=== PATIENT | female | born 1955 | race Caucasian/White ===

== ENCOUNTER 2022-12-21 15:55 | Outpatient (CLI) | payer MEDICARE, MEDICAID | END 2022-12-22 06:20 | disposition home or self-care (01) | LOC: SLEEP 15:55 | PROVIDERS: ATTEND Internal Medicine Critical Care Medicine | DX: G47.33 Obstructive sleep apnea (adult) (pediatric) (principal) | CPT/HCPCS: 95810 ==

== ENCOUNTER → 2022-12-21 | Outpatient (CLI) | payer MEDICARE, MEDICAID ==
[~2022-12-21] MED LIST: CATHETER FLUSH 10 ML SYR IV PRN; HOLD METFORMIN - RECEIVED CONTRAST 20 ML VIAL IV SCH; IOHEXOL 350 MG/ML 100 ML (OMNIPAQUE 350) VIAL IV ONE; NS 100 ML (IVPB) BAG IV ONE
[2022-12-21 15:57] LABS: MAGNESIUM 1.7 MG/DL (1.6-2.4)
--- NOTE | 2022-12-21 17:49 | Diagnostic Imaging Report ---
PROCEDURE: CT angiography of the chest with contrast. TECHNIQUE: Multiple contiguous axial images were obtained through the chest after uneventful bolus administration of intravenous contrast. 3D reconstructed CTA MIP acquisitions were also performed. Auto Exposure Controls were utilized during the CT exam to meet ALARA standards for radiation dose reduction. INDICATION: Dyspnea There is good opacification of the pulmonary arteries without intraluminal filling defect. Thoracic aorta is of normal caliber with mild/moderate atherosclerotic calcification. There is no evidence of consolidation. Focal parenchymal density along the left heart border may represent areas of atelectasis or scarring. There is no significant pleural or pericardial fluid. No pathologically enlarged adenopathy is seen. There is calcified granuloma in the right lower lobe. Upper abdominal sections reveal cholelithiasis. IMPRESSION: No CTA evidence of pulmonary embolism. There is moderate aortic atherosclerosis with probable atelectasis and/or scarring in the left lung. Otherwise, no acute abnormality is detected. Dictated by: Dictated on workstation # [id number]
[2022-12-22 06:11] LABS: ALTERNARIA MOLD RAST <0.10 kU/L (0.00-0.09); RAGWEED RAST 0.89 kU/L (0.00-0.09)
== END ==
LOC: CARD 13:43
PROVIDERS: ATTEND Physician Assistant
DX: I51.7 Cardiomegaly (principal); J96.11 Chronic respiratory failure with hypoxia; G47.33 Obstructive sleep apnea (adult) (pediatric)
CPT/HCPCS: 36415; 71275; 83735; 83880; 85379; 85652; 86003; 86021; 86141; 93306

== ENCOUNTER → 2022-12-21 | Outpatient (CLI) | payer MEDICARE, MEDICAID ==
[2022-12-21 15:29] LABS: HEMATOCRIT 43 % (35-52); HEMOGLOBIN 14.6 g/dL (11.5-16.0); MEAN CORPUSCULAR HEMOGLOBIN 33 pg (25-34); MEAN CORPUSCULAR HGB CONC 34 g/dL (32-36); MEAN CORPUSCULAR VOLUME 96 fL (80-99); MEAN PLATELET VOLUME 11.1 fL (9.0-12.2); PLATELET COUNT 252 10^3/uL (130-400); WHITE BLOOD COUNT 9.3 10^3/uL (4.3-11.0)
[2022-12-21 15:42] LABS: ABG BASE EXCESS 1.6 MMOL/L (-2.5-2.5); ABG OXYGEN SATURATION 95 % (94-100); ABG PCO2 44 MMHG (35-45); ABG PH 7.39 (7.37-7.43); ABG PO2 65 MMHG (79-93); ABG TCO2 27.4 MMOL/L (21.0-31.0); ALLENS TEST YES-POS; INSPIRED O2 2L; PATIENT TEMP 37; VENTILATOR NO
[2022-12-21 16:00] LABS: ALBUMIN 4.4 GM/DL (3.2-4.5); BILIRUBIN,TOTAL 0.6 MG/DL (0.1-1.0); CALCIUM 10.2 MG/DL (8.5-10.1); CREATININE SERUM 0.69 MG/DL (0.60-1.30); POTASSIUM 3.5 MMOL/L (3.6-5.0); TOTAL PROTEIN 8.2 GM/DL (6.4-8.2)
== END ==
LOC: LAB 14:59
PROVIDERS: ATTEND Internal Medicine Cardiovascular Disease
DX: I10 Essential (primary) hypertension (principal); I25.10 Atherosclerotic heart disease of native coronary artery without angina pectoris; I48.0 Paroxysmal atrial fibrillation; E78.2 Mixed hyperlipidemia
CPT/HCPCS: 36415; 36600; 80053; 80061; 82805; 83036; 84443; 85027

== ENCOUNTER → 2023-01-11 | Outpatient (CLI) | payer MEDICARE, MEDICAID ==
[~2023-01-11] MED LIST changes: -CATHETER FLUSH 10 ML SYR IV PRN; +CATHETER FLUSH 10 ML SYR IVP PRN; -HOLD METFORMIN - RECEIVED CONTRAST 20 ML VIAL IV SCH; -IOHEXOL 350 MG/ML 100 ML (OMNIPAQUE 350) VIAL IV ONE; -NS 100 ML (IVPB) BAG IV ONE; +REGADENOSON 0.4 MG/5 ML SYR (LEXISCAN) IV ONE; +meTOprolol INJECTION 5 MG/5 ML VIAL IV ONE; +meTOprolol INJECTION 5 MG/5 ML VIAL ONE
[2023-01-11 13:26] VITALS: BP 131/80
--- NOTE | 2023-01-11 16:01 | Cardiology Stress Test Report ---
Stress Test Report Date of Procedure/Referring: Date of Procedure: Jan 11, 2023 PCP Kalpana Harris Aprn Admitting Physician Admitting Physician: Attending Physician: Mya Baker Indications: atrial fib Baseline Heart Rate: 133 Baseline Blood Pressure: Blood Pressure Systolic: 131 Blood Pressure Diastolic: 80 Baseline Vitals Vital Signs Date Time Temp Pulse Resp B/P (MAP) Pulse Ox O2 Delivery O2 Flow Rate FiO2 01/11/23 13:26 129 131/80 (97) Baseline EKG: Baseline EKG: A Fib Summary After explaining the procedure to the patient, she signed a consent and then brought to the stress nuclear laboratory. Patient received 0.4 mg Lexiscan for stress test, ECG, heart rate and blood pressure were monitored continuously. Resting and stress dose of radio tracer were injected, imaging was acquired and reviewed in short axis, horizontal long axis and vertical long axis views. TID: 1.15 SSS: 10 SDS: 7 EF: 82 Patient tolerated Lexiscan well Baseline atrial fibrillation with rapid ventricular response persisted during test Reversible ischemia involving the anterior wall and anterior lateral wall Small left ventricular size with ejection fraction 82% Copy Copies To 1: [facility]/CHARU OTTO MD Jan 11, 2023 16:01
== END ==
LOC: CARD 12:07
PROVIDERS: ATTEND Physician Assistant
DX: I48.91 Unspecified atrial fibrillation (principal); R06.00 Dyspnea, unspecified
CPT/HCPCS: 78452; 93017

== ENCOUNTER 2023-01-16 07:53 | Day surgery (SDC) | payer MEDICARE, MEDICAID ==
[2023-01-16] VITALS (8 sets, daily range): BP systolic 89–134; BP diastolic 51–85
[~2023-01-16] VITALS: Ht 149.9 cm; Wt 69.3 kg
[2023-01-16] MEDS ORDERED: LIDOCAINE 1% INJ 20 ML VIAL ONE (07:58)
[2023-01-16] MEDS ORDERED: NS IV 1000 ML 1,000 ML ONE (07:58)
[2023-01-16] MEDS ORDERED: HEParin (CATH LAB) 2,000 ML IV ONE (07:58)
[2023-01-16] MEDS ORDERED: NS IV 1000 ML 1,000 ML IV SCH ×2 (08:00→11:15)
[2023-01-16 08:33] LABS: HEMATOCRIT 46 % (35-52); HEMOGLOBIN 15.2 g/dL (11.5-16.0); MEAN CORPUSCULAR HEMOGLOBIN 32 pg (25-34); MEAN CORPUSCULAR HGB CONC 33 g/dL (32-36); MEAN CORPUSCULAR VOLUME 96 fL (80-99); MEAN PLATELET VOLUME 11.1 fL (9.0-12.2); PLATELET COUNT 277 10^3/uL (130-400); WHITE BLOOD COUNT 11.4 10^3/uL (4.3-11.0)
[2023-01-16] MEDS ORDERED: ATOR20TA66 PO (08:33)
[2023-01-16] MEDS ORDERED: LISI1TAB46 PO (08:33)
[2023-01-16] MEDS ORDERED: DIAZ5TAB49 PO (08:33)
[2023-01-16] MEDS ORDERED: METO50TA15 PO (08:33)
[2023-01-16] MEDS ORDERED: RIVA20TA PO (08:33)
[2023-01-16] MEDS ORDERED: LEVO50TA6 PO (08:33)
[2023-01-16] MEDS ORDERED: AMLO10TA4 PO (08:33)
[2023-01-16] MEDS ORDERED: METF-397 PO ×2 (08:33→11:06)
[2023-01-16] MEDS ORDERED: TIOT4MIS3 IH (08:33)
[2023-01-16] MEDS ORDERED: ALBU6.7H13 INH (08:33)
[2023-01-16] MEDS ORDERED: proPOfol INJECTION 200 MG/20 ML VIAL IV ONE ×2 (08:39→09:10)
[2023-01-16] MEDS ORDERED: MIDAZOLAM INJ 2 MG/2 ML VIAL ONE (08:39)
[2023-01-16 08:45] LABS: INR 2.5 (0.8-1.4); PROTHROMBIN TIME PATIENT 26.8 SEC (12.2-14.7)
--- NOTE | 2023-01-16 08:53 | Diagnostic Imaging Report ---
Indication: Coronary artery disease and an abnormal stress study Findings: Heart size is within normal limits. No focal consolidation, failure pattern, effusion or pneumothorax. Benign prominence of mediastinal and pericardial fat. Stable when correlated with a chest CT of one month earlier. Impression: Stable chest. No acute appearing abnormality. Dictated by: Dictated on workstation # [id number]
[2023-01-16 08:56] LABS: ALBUMIN 4.5 GM/DL (3.2-4.5); BILIRUBIN,TOTAL 0.7 MG/DL (0.1-1.0); CALCIUM 10.2 MG/DL (8.5-10.1); CREATININE SERUM 0.8 MG/DL (0.60-1.30); POTASSIUM 3.8 MMOL/L (3.6-5.0); TOTAL PROTEIN 8.3 GM/DL (6.4-8.2)
[2023-01-16] MEDS ORDERED: VERAPAMIL 5 MG/2 ML (CALAN) VIAL IV ONE (09:09)
[2023-01-16] MEDS ORDERED: fentaNYL INJECTION 100 MCG/2 ML VIAL ONE (09:09)
[2023-01-16] MEDS ORDERED: MIDAZOLAM INJ 5 MG/5 ML VIAL ONE (09:09)
[2023-01-16] MEDS ORDERED: HEParin 1000 UNIT/ML (10ML VIAL) FOR BOLUS ONE (09:10)
[2023-01-16] MEDS ORDERED: NITRO DRIP 25000 MCG/D5W 250 ML IV ONE (09:10)
--- NOTE | 2023-01-16 09:39 | Cardiac Procedure Note-CS/ASA ---
Pre-Procedure Note Pre-Op Procedure Note Date of Available H&P: Jan 12, 2023 Date H&P Reviewed: Jan 16, 2023 Time H&P Reviewed: 09:39 History & Physical: H&P Reviewed, Patient Examed, No changes noted Pre-Operative Diagnosis: CAD. A fib Moderate Sedation PreProcedure Time 09:39 ASA Score 3 Airway Lungs Heart ASA score ASA 1: a normal healthy patient ASA 2: a patient with a mild systemic disease (mid diabetes, controlled hypertension, obesity ASA 3: a patient with a severe systemic disease that limits activity (angina, COPD, prior Myocardial infarction) ASA 4: a patient with an incapacitating disease that is a constant threat to life (CHF, renal failure) ASA 5: a moribund patient not expected to survive 24 hrs. (ruptured aneurysm) ASA 6: a declared brain- patient whose organs are being harvested. For emergent operations, add the letter E after the classification Mallampati Classification Grade 3 Sedation Plan Analgesia, Amnesia, Plan communicated to team members, Discussed options with patient/fam, Discussed risks with patient/fam The patient is an appropriate candidate to undergo the planned procedure, sedation, and anesthesia. The patient immediately re-assessed prior to indication. CHARU CROW MD Jan 16, 2023 09:39
--- NOTE | 2023-01-16 10:53 | Cardioversion ---
Cardioversion PROCEDURE PHYSICIAN: Charu Mir DATE OF PROCEDURE: 01/16/23 DIRECT EXTERNAL ELECTRICAL CARDIOVERSION: Indications: Atrial Fibrillation with rapid ventricular rate Preoperative diagnoses: Atrial Fibrillation with rapid ventricular rate Postoperative diagnosis: Sinus rhythm, Successful Electrical Cardioversion Anesthesia: By Anesthesia services Complications: None Specimen: None Contrast: 0 Flouroscopy: none Procedure Details: 67-year-old lady with atrial fibrillation, chronic, scheduled for DORETHA and electrical cardioversion had an abnormal stress test scheduled for cardiac catheterization after the cardioversion. 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 Electrical cardioversion was carried out with anesthesia support with propofol. 200 joules of synchronized shock was delivered through external patches which promptly restored sinus rhythm. The patient tolerated the procedure well. Conclusions: Successful electrical cardioversion, patient has a long pause then she establish sinus rhythm Final Diagnosis: Paroxysmal atrial fibrillation Palpitation Coronary artery disease Hypertension CHARU MIR MD Jan 16, 2023 10:53
[2023-01-16] MEDS ORDERED: FLEC100T PO (11:06)
--- NOTE | 2023-01-16 11:07 | Discharge Inst-Post CATH ---
Discharge Inst-CATH/EP Problems Reviewed?: Yes Post Cardiac Cath/EP D/C Inst Follow Up/Plan Hold metformin for [address] Mir in 1 to 2 weeks <b>CARDIAC CATH/EP PROCEDURE DISCHARGE INSTRUCTIONS</b> ACTIVITY * Go Home directly and rest. * Limit activity of the leg (or wrist if it was used) for 7 days including aerobics, swimming, jogging, bicycling, etc. * Restrict stair-climbing for 7 days if possible, if not, climb up with your non-cath leg, then bring together on the same step. * Avoid lifting, pushing, pulling or excessive movement of the affected extremity for 7 days. * Customary sexual activity may be resumed after 2 days-use caution not to use a position that strains or causes pain to the affected extremity. * No driving for 24 hours. * NO SMOKING. * Avoid straining for bowel movements for 7 days. * Gentle walking on level ground is allowed. * Returning to work will depend on the type of procedure and the results. Your doctor will discuss this with you. CALL YOUR DOCTOR FOR ANY OF THE FOLLOWING: *If bleeding from the puncture site occurs- Apply gentle pressure to site with clean cloth and call your doctor or EMS. * If a knot or lump forms under the skin, increases in size, or causes pain. * If bruising appears to be worsening or moving further down your leg instead of disappearing. * Temperature above 101 F. CARE OF YOUR GROIN INCISION; * Bruising or purple discoloration of the skin near the puncture site is common. * You may shower only, no bathtub bathing for 5 days. Be careful to avoid slipping as your leg may feel stiff. * If a closure device was used on your femoral artery, please see the attached guide regarding care of the device and your leg. * Leave dressing on FOR 24 hours. CARE OF YOUR WRIST INCISION; * Bruising or purple discoloration of the skin near the puncture site is common. * You may shower. * DO NOT submerge wrist. * Leave dressing on FOR 24 hours. CHARU MIR MD Jan 16, 2023 11:07
--- NOTE | 2023-01-16 11:09 | Cardiac Cath Report ---
Cardiac Cath Report Physician (s)/Theatrical Agent (s) Physician CHARU CROW MD Pre-Procedure Diagnosis Pre-Procedure Diagnosis: CAD. A fib Post-Procedure Note Procedure Start Date: Jan 16, 2023 Name of Procedure: Left heart catheterization Findings/Procedure Note PROCEDURE NOTE: 67-year-old lady with atrial fibrillation, abnormal stress test, scheduled for DORETHA and cardioversion and cardiac catheterization. DORETHA and cardioversion were done then we decided to proceed with a cardiac catheterization. After explaining the procedure to the patient, all pros and cons were explained, all questions were answered. The patient signed the consent and then she was placed in the cardiac catheterization laboratory. Groin was prepped in SL fashion local anesthesia was used. Sheath placed in the right radial artery, [place] catheter was advanced and prolapsed to the left ventricular cavity, pressure was measured, pullback LV to aorta was done, engage the right and left coronary system, angiogram was done. At the end of the procedure the sheath was removed. Vascular band was used FINDINGS: Hemodynamics LV 94/10, end-diastolic pressure of 10 Aorta 85/53 mean of 66 ANATOMY: Left Main is free of obstructive disease Left Anterior Descending has slow flow probably due to small vessel disease nonobstructive disease Left Circumflex has slow flow with small vessel disease nonobstructive disease Right Coronary Artery is a small artery, dominant artery with 40% stenosis in the midportion nonobstructive disease LV Gram was not done, pressure was measured CONCLUSION: Slow flow in the left coronary system due to small vessel disease, 40% mid right coronary artery stenosis nonobstructive disease Normal left ventricular end-diastolic pressure DISCUSSION AND RECOMMENDATION: Patient has nonobstructive disease in the coronary system, we will continue maximizing medical therapy in addition after the cardioversion patient will be started on flecainide 100 mg twice daily Anesthesia Type: Conscious Sedation Estimated blood loss (mL): 10 ml Contrast Amount: 27 ml Total Radiation Dose: 258 mGy Post-Procedure Diagnosis Post-operative diagnosis: Coronary artery disease Atrial fibrillation Hypertension Hyperlipidemia CHARU CROW MD Jan 16, 2023 11:09
--- NOTE | 2023-01-16 13:05 | Anesthesia-General Post-Op ---
MAC Patient Condition Mental Status/LOC: Same as Preop Cardiovascular: Satisfactory Nausea/Vomiting: Absent Respiratory: Satisfactory Pain: Controlled Complications: Absent Post Op Complications Complications None Follow Up Care/Instructions Patient Instructions None needed. Anesthesiology Discharge Order Discharge Order Patient was doing well this morning after the DORETHA/cardioversion before the cardiac cath started with no complaints, stable vital signs, no apparent adverse anesthesia problems. No complications reported per nursing. ELISE OLIVARES DO Jan 16, 2023 13:05
== END 2023-01-16 14:00 | disposition home or self-care (01) ==
LOC: CATH 07:53 → SDC 11:19 → CATH 14:00
PROVIDERS: ATTEND Internal Medicine Cardiovascular Disease
DX: I25.10 Atherosclerotic heart disease of native coronary artery without angina pectoris (principal); I48.0 Paroxysmal atrial fibrillation; I10 Essential (primary) hypertension; R94.39 Abnormal result of other cardiovascular function study; J44.9 Chronic obstructive pulmonary disease, unspecified; E03.9 Hypothyroidism, unspecified; E11.9 Type 2 diabetes mellitus without complications; E78.2 Mixed hyperlipidemia; Z99.81 Dependence on supplemental oxygen; Z87.891 Personal history of nicotine dependence; Z79.899 Other long term (current) drug therapy; Z79.01 Long term (current) use of anticoagulants; Z79.890 Hormone replacement therapy; Z79.84 Long term (current) use of oral hypoglycemic drugs
CPT/HCPCS: 36415; 36430; 71045; 80053; 85027; 85610; 85730; 87081; 92960; 93005; 93312; 93458

== ENCOUNTER 2023-01-18 03:04 | Inpatient (IN) | payer MEDICARE, MEDICAID ==
[~2023-01-18] VITALS: Ht 149.9 cm; Wt 71.3 kg
[~2023-01-18 03:04] MED LIST changes: +ALBU6.7H13 INH; +AMLO10TA4 PO; +ATOR20TA66 PO; -CATHETER FLUSH 10 ML SYR IVP PRN; +DIAZ5TAB49 PO; +FLEC100T PO; +LEVO50TA6 PO; +LISI1TAB46 PO; +METF-397 PO; +METO50TA15 PO; -REGADENOSON 0.4 MG/5 ML SYR (LEXISCAN) IV ONE; +RIVA20TA PO; +TIOT4MIS3 IH; -meTOprolol INJECTION 5 MG/5 ML VIAL IV ONE; -meTOprolol INJECTION 5 MG/5 ML VIAL ONE
[2023-01-18] MEDS ORDERED: RT-ALBUTEROL SULF 2.5 MG/3 ML PRE-MIX VIAL INH ONE (03:30)
--- NOTE | 2023-01-18 03:34 | ED Respiratory ---
General Chief Complaint: Respiratory Problems Stated Complaint: SOA Nursing Triage Note: PATIENT ARRIVED VIA EMS FROM [facility] WITH COMPLAINTS OF INCREASED SOB, PATIENT DENIES BREATHING TX AT HOME. PATIENT LABORED BREATHING, SOB INCREASED WITH VERBAL COMMUNICATION, ON OXYGEN 4L, DUE TO ABN ABG DR SOTO REQUESTED PATIENT TO BE ELVALUATED IN ED. IV LEFT AC. BREATHING TX ADMINISTERED BY EMS CONTENT ENGINEER. HEART CATH YESTERDAY Source: patient, other (transferring ED) Exam Limitations: no limitations History of Present Illness Date Seen by Provider: Jan 18, 2023 Time Seen by Provider: 03:12 Initial Comments Patient is a 67-year-old female who presents to the emergency room with a chief complaint of worsening shortness of breath all day long. She has had quite a work-up over the last couple of weeks including stress test in recent weeks and then electrical cardioversion yesterday with a heart cath by Dr. Mir. Patient was started on flecainide. She is anticoagulated on Xarelto. She sees Dr. Johan Figueroa, shine worker at [facility]. She states she only has about "30%" lung function. History of smoking, quit many years ago. She has had DuoNeb x2 over the last several hours. She is normally on 2 L of oxygen per nasal cannula but was requiring 4-5 at the emergency department in [facility]. Patient denies any chest pain. She denies any productive cough. No COVID symptoms. No fevers. She is not having any bowel or bladder issues. I did review her cardiac cath and echo from yesterday. She has normal ejection fraction. Successful cardioversion to normal sinus rhythm. 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 Review of the medical record from [facility] shows the patient has a pH of 7.2 with PCO2 of 52. She is currently on 5 L at presentation. Switched over to BiPAP. We will run in line albuterol at this time. EKG is being obtained as it was unable to be obtained at the [facility] facility. We will repeat chest x- ray. Have discussed the case with Dr. Soto on for [facility] hospitalist. Will admit to the ICU with a consult to Dr. Mir in the morning. Timing/Duration: yesterday Severity: severe Prior Episodes/Possible Cause: occasional episodes Modifying Factors: Improves With Albuterol Inhaler, Improves With Oxygen Associated Symptoms: shortness of breath Allergies and Home Medications Allergies Coded Allergies: Sulfa (Sulfonamide Antibiotics) (Verified Allergy, Unknown, 01/16/23) Patient Home Medication List Home Medication List Reviewed: Yes Albuterol Sulfate (Proventil Hfa) 90 Mcg Hfa.aer.ad, 1 PUFF INH PRN PRN for SHORTNESS OF BREATH, (Reported) Entered as Reported by: LASHA CHASE on 01/16/23832 Amlodipine Besylate (Norvasc) 10 Mg Tablet, 10 MG PO DAILY, (Reported) Entered as Reported by: LASHA CHASE on 01/16/23832 Atorvastatin Calcium (Atorvastatin Calcium) 20 Mg Tablet, 20 MG PO DAILY, (Reported) Entered as Reported by: LASHA CHASE on 01/16/23832 Diazepam (Diazepam) 5 Mg Tablet, 5 MG PO DAILY PRN for ANXIETY, (Reported) Entered as Reported by: LASHA CHASE on 01/16/23832 Flecainide Acetate (Flecainide Acetate) 100 Mg Tablet, 100 MG PO BID Prescribed by: CHARU MIR on 01/16/231105 Levothyroxine Sodium (Levothyroxine Sodium) 50 Mcg Tablet, 50 MCG PO DAILY, (Reported) Entered as Reported by: LASHA CHASE on 01/16/23832 Lisinopril/Hydrochlorothiazide (Lisinopril-Hctz 20-12.5 mg Tab) 20 Mg-12.5 Mg Tablet, 1 EACH PO DAILY, (Reported) Entered as Reported by: LASHA CHASE on 01/16/23832 Metformin HCl (Metformin HCl) 500 Mg Tablet, 500 MG PO DAILY Prescribed by: CHARU MIR on 01/16/23 110 Metoprolol Tartrate (Metoprolol Tartrate) 50 Mg Tablet, 50 MG PO BID, (Reported) Entered as Reported by: LASHA CHASE on 01/16/23832 Rivaroxaban (Xarelto) 20 Mg Tablet, 20 MG PO DAILY, (Reported) Entered as Reported by: LASHA CHASE on 01/16/23832 Tiotropium Br/Olodaterol HCl (Stiolto Respimat Inhal Bunn) 2.5 Mcg-2.5 Mcg/Act uation Mist.inhal, 2 PUFF IH DAILY, (Reported) Entered as Reported by: LASHA TAPIAJAMEEVasquez on 01/16/23832 Review of Systems Review of Systems Constitutional: see HPI EENTM: no symptoms reported Respiratory: short of breath Cardiovascular: no symptoms reported Gastrointestinal: no symptoms reported Genitourinary: no symptoms reported Musculoskeletal: no symptoms reported Skin: no symptoms reported All Other Systems Reviewed Negative Unless Noted: Yes Past Pmxfanp-Aofqcw-Owmfwj Hx Patient Social History Smoking Status: Former Smoker Immunizations Up To Date COVID19 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 oz. kg; 31.00 BMI Method: General Appearance: WD/WN, moderate distress Eyes: Bilateral Eye Normal Inspection, Bilateral Eye PERRL, Bilateral Eye EOMI HEENT: PERRL/EOMI Neck: normal inspection Respiratory: decreased breath sounds, accessory muscle use, other (diminished throughout - poor air movement; conversational dyspnea, speaks in 2/3 word sentences) Cardiovascular: regular rate, rhythm Gastrointestinal: non tender, soft Extremities: normal range of motion, non-tender, normal inspection, no pedal edema Neurologic/Psychiatric: alert, normal mood/affect, oriented x 3 Skin: normal color, warm/dry, pallor Progress/Results/Core Measures Suspected Sepsis SIRS Temperature: Pulse: 68 Respiratory Rate: 28 Blood Pressure 119 /87 Mean: 98 Results/Orders Lab Results Laboratory Tests Test 01/18/23 03:43 Range/Units SARS-CoV-2 RNA (RT-PCR) Not Detected Not Detecte My Orders Orders - DINH OSMAN MD Ed Iv/Invasive Line Start (01/18/23 03:18) Chest 1 View, Ap/Pa Only (01/18/23 03:18) Ekg Tracing (01/18/23 03:18) Albuterol Pre-Mix Nebs (Rt) (Albuterol (01/18/23 03:30) Svn Small Volume Nebulizer (01/18/23 03:18) Covid 19 Inhouse Test (01/18/23 03:40) Furosemide Injection (Furosemide Injec (01/18/23 04:00) Lorenzo Cath (01/18/23 04:17) Medications Given in ED Current Medications Medications Dose Ordered Sig/Mara Route Start Time Stop Time Status Last Admin Dose Admin Albuterol Sulfate 2.5 mg ONCE ONCE INH 01/18/23 03:30 01/18/23 03:31 DC 01/18/23 03:36 2.5 MG Furosemide 40 mg ONCE ONCE IVP 01/18/23 04:00 01/18/23 04:01 DC 01/18/23 04:15 40 MG Vital Signs/I&O 01/18/23 01/18/23 01/18/23 01/18/23 03:09 03:09 03:26 04:40 Pulse 68 64 58 Resp 28 24 18 B/P (MAP) 119/87 (98) 107/57 Pulse Ox 98 100 100 O2 Delivery Nasal Cannula Nasal Cannula NIV Bilevel O2 Flow Rate 4.00 100.00 100.00 Capillary Refill : Less Than 3 Seconds Blood Pressure Mean: 98 Progress Note : Time: 03:52 Progress Note Patient seen and evaluated by me, evaluation today includes physical exam, single view chest x-ray, EKG, COVID test. [facility] also [facility] with significantly elevated BNP greater than 1000. Patient's physical exam is pertinent for mild to moderate respiratory distress with overall poor air movement, no wheezes. She is labored in her breathing with conversational dyspnea. Heart is regular/bradycardic. She has no lower extremity edema. Blood pressure is 146/100. She is currently on BiPAP tolerating it well. No focal neurologic deficits. Differential diagnosis based on history and physical exam acute exacerbation of COPD, congestive heart failure EKG shows normal sinus rhythm similar to the most previous EKG obtained in the hospital with her cardioversion and heart cath. No ST segment change. She does have sinus arrhythmia. Chest x-ray demonstrates bilateral pleural effusions with increased pulmonary vascular congestion. This in conjunction with her elevated BNP from the outside facility prompts me to give her some Lasix here in the emergency department. Her renal function in the outlying facility was normal. COVID test is pending at the time of this dictation. I spoke with Dr. Soto about this patient previously will admit her to the ICU on telemetry, BiPAP. Patient is comfortable with plan of care and agreeable ECG Initial ECG Impression Date: Jan 18, 2023 Initial ECG Impression Time: 03:33 Initial ECG Rate: 57 Initial ECG Rhythm: S.Munir Initial ECG Intervals MI 229 QRS 107 QTc 469 Initial ECG Impression: Sinus Bradycardia Comment sinus arrhythmia; 1st degree AVB; Q waves V1-3 Diagnostic Imaging Diagonstic Imaging: Xray Plain Films/CT/US/NM/MRI: chest Comments single view CXR independently reviewed and interpreted by me - bilateral e ffusions; increased pul vascular congestion Critical Care Note Critical Care Start Time: 03:12 Stop Time: 04:00 Total Time (minutes) 30 min critical care time in the evaluation and management of this patient with respiratory distress. Time includes initial eval and placement on Bipap. Extensive review of [facility] records/labs. Review of recent cath/cardioversion from 2 days ago. discussion with admitting provider. serial re-evaluations; Departure Communication (Admissions) Time/Spoke to Admitting Phy: 01:[address] Soto ([facility] hospitalist)- admit to ICU Time/Spoke to Consulting Phy: 04:43 Discussed with eICU (Dr Giron) Impression Primary Impression: COPD exacerbation Additional Impression: Congestive heart failure Qualified Codes: I50.9 - Heart failure, unspecified Disposition: 09 ADMITTED INPATIENT Condition: Critical Admissions Decision to Admit Reason: Admit from ER (General) Decision to Admit/Date: Jan 18, 2023 Time/Decision to Admit Time: 03:37 Departure-Patient Inst. Referrals: MAJOR HAHN APRN (PCP/Family) Primary Care Physician Copy Copies To 1: CHARU MIR MD, KATHRYN M MD Jan 18, 2023 03:34
[2023-01-18] MEDS ORDERED: FUROSEMIDE INJECTION 40 MG/4 ML VIAL IVP ONE (04:00)
[2023-01-18] MEDS ORDERED: CATHETER FLUSH 10 ML SYR IVP PRN (05:00)
[2023-01-18] MEDS ORDERED: diphenhydrAMINE INJ 50 MG/ML VIAL IVP PRN (05:15)
[2023-01-18] MEDS ORDERED: LACTULOSE SYRUP 10GM/15ML 30ML UDC PO PRN (05:15)
[2023-01-18] MEDS ORDERED: diphenhydrAMINE 25 MG TABLET PO PRN ×2 (05:15)
[2023-01-18] MEDS ORDERED: ACETAMINOPHEN 325 MG TABLET PO PRN ×2 (05:15)
[2023-01-18] MEDS ORDERED: MILK OF MAGNESIA 400 MG/5 ML 30 ML UDC PO PRN (05:15)
[2023-01-18] MEDS ORDERED: MELATONIN 3 MG TABLET PO PRN (05:15)
[2023-01-18] MEDS ORDERED: ONDANSETRON INJECTION 4 MG/2 ML (SDV) IVP PRN (05:15)
[2023-01-18] MEDS ORDERED: oxyCODONE IMMEDIATE RELEASE 5 MG TABLET PO PRN (05:15)
[2023-01-18] MEDS ORDERED: NS IV 500 ML 500 ML IV PRN (05:15)
[2023-01-18] MEDS ORDERED: PATIENT MAY USE OWN MEDS, ALL PO SCH (05:15)
[2023-01-18] MEDS ORDERED: diphenhydrAMINE INJ 50 MG/ML VIAL IV PRN (05:15)
[2023-01-18] MEDS ORDERED: CALCIUM CARBONATE 500 MG CHEW TABLET PO PRN (05:15)
[2023-01-18] MEDS ORDERED: ONDANSETRON INJECTION 4 MG/2 ML (SDV) IV PRN (05:15)
[2023-01-18] MEDS ORDERED: DexMEDEtomidine 1,000mcg/250ml 250 ML IV SCH (05:15)
[2023-01-18] MEDS ORDERED: HYDROmorphone INJECTION 2 MG/ML VIAL IV PRN (05:15)
[2023-01-18] MEDS ORDERED: BISACODYL 10 MG SUPPOSITORY PR PRN (05:15)
[2023-01-18] MEDS ORDERED: ANTACID SUSPENSION 30 ML UDC PO PRN (05:15)
[2023-01-18 05:20] VITALS: BP 119/87
[2023-01-18] MEDS ORDERED: RT-Ipratropium/Albuterol NEB 3 ML VIAL INH PRN (05:30)
[2023-01-18 06:00] LABS: BASOPHILS % (AUTO) 0 % (0-10); EOSINOPHILS % (AUTO) 0 % (0-10); HEMATOCRIT 42 % (35-52); HEMOGLOBIN 13.8 g/dL (11.5-16.0); LYMPHOCYTES # (AUTO) 0.5 10^3/uL (1.0-4.0); LYMPHOCYTES % (AUTO) 5 % (12-44); MEAN CORPUSCULAR HEMOGLOBIN 32 pg (25-34); MEAN CORPUSCULAR HGB CONC 33 g/dL (32-36); MEAN CORPUSCULAR VOLUME 97 fL (80-99); MEAN PLATELET VOLUME 11.4 fL (9.0-12.2); MONOCYTES # (AUTO) 0.1 10^3/uL (0.0-1.0); MONOCYTES % (AUTO) 1 % (0-12); NEUTROPHILS # (AUTO) 9.3 10^3/uL (1.8-7.8); NEUTROPHILS % (AUTO) 94 % (42-75); PLATELET COUNT 207 10^3/uL (130-400); WHITE BLOOD COUNT 9.9 10^3/uL (4.3-11.0)
[2023-01-18] MEDS ORDERED: methylPREDNISolone INJ 125 MG VIAL IVP SCH (06:00)
[2023-01-18] MEDS ORDERED: inSUlin ASPART 1 UNIT/0.01 ML (PER UNIT) SC SCH (06:00)
[2023-01-18] MEDS: CATHETER FLUSH 10 ML SYR IVP SCH ×3 (06:09→21:26)
[2023-01-18 06:29] LABS: LYMPHOCYTES % (MANUAL) 4 %; MONOCYTES % (MANUAL) 1 %; NEUTROPHILS % (MANUAL) 95 %; RBC MORPH NORMAL
[2023-01-18 06:37] LABS: CHLORIDE 101 MMOL/L (98-107); POTASSIUM 3.7 MMOL/L (3.6-5.0); SODIUM 137 MMOL/L (135-145)
[2023-01-18 06:38] LABS: CALCIUM 9.8 MG/DL (8.5-10.1); GLUCOSE 215 MG/DL (70-105)
[2023-01-18 06:40] LABS: CARBON DIOXIDE 24 MMOL/L (21-32)
[2023-01-18 06:42] LABS: CREATININE SERUM 0.77 MG/DL (0.60-1.30); GFR ESTIMATED 85
[2023-01-18 06:43] LABS: BUN/CREATININE RATIO 18
[2023-01-18] MEDS: POTASSIUM CHLORIDE 20 MEQ TABLET PO SCH (06:53)
[2023-01-18] MEDS: POTASSIUM CL 10MEQ/50ML IVPB 50 ML IV SCH (06:53)
[2023-01-18] MEDS: inSUlin ASPART 1 UNIT/0.01 ML (PER UNIT) SC SCH ×4 (06:59→20:51)
[2023-01-18] MEDS ORDERED: metFORMIN 500 MG TABLET PO SCH ×2 (07:00→18:00)
[2023-01-18] MEDS ORDERED: POTASSIUM CHLORIDE 20 MEQ TABLET PO ONE (07:00)
--- NOTE | 2023-01-18 07:04 | Diagnostic Imaging Report ---
EXAMINATION: Chest radiograph, portable AP view. DATE: 01/18/2023 4:05 AM INDICATION: 67-year-old female, shortness of breath. COMPARISON: January 16, 2023. FINDINGS: Heart size and mediastinal contours are unchanged. There is nonspecific left mid and lower lung zone consolidation. There is also consolidation in the right lung base. There is mediastinal shift to the left which is unchanged. There is no identified pneumothorax. IMPRESSION: 1. Nonspecific left mid and lower lung zone consolidation and consolidation in the right lung base which may relate to pleural effusions, infiltrate, and/or atelectasis. 2. Mediastinal shift to the left is unchanged. Dictated by: Dictated on workstation # [id number]
[2023-01-18] MEDS: RT-Ipratropium/Albuterol NEB 3 ML VIAL INH SCH ×3 (07:35→21:16)
[2023-01-18] MEDS: ASPIRIN 81 MG CHEWABLE TABLET PO SCH (08:42)
[2023-01-18] MEDS: FUROSEMIDE INJECTION 40 MG/4 ML VIAL IV SCH ×2 (08:43→20:50)
[2023-01-18] MEDS: DOCUSATE SODIUM 100 MG CAPSULE PO SCH ×2 (09:21→20:44)
[2023-01-18] MEDS: SENNOSIDES 8.6 MG (SENOKOT) TAB PO SCH ×2 (09:22→20:44)
[2023-01-18] MEDS: MAGNESIUM 1 GM/100 ML IVPB 100 ML IV SCH (09:25)
[2023-01-18] MEDS ORDERED: LISI1TAB48 PO (10:28)
[2023-01-18] MEDS ORDERED: FLEC100T PO (10:28)
[2023-01-18] MEDS ORDERED: METF-397 PO (10:28)
[2023-01-18] MEDS ORDERED: AMLO-251 PO (10:28)
--- NOTE | 2023-01-18 11:41 | History & Physical-Hospitalist ---
History of Present Illness HPI/Chief Complaint Chief complaint: Shortness of breath HPI: This is a 67-year-old female who was transferred from [facility] due to shortness of breath. She did require BiPAP and possible intubation so she was sent through the ER first. Cardiology has assessed her and will stop flecainide which she thinks is an allergic reaction to. She denied any cough or fever or chills and she has been in her usual health. She sees Dr. Kauffman and reports she has 34% of lung function. Source: patient Exam Limitations: no limitations Date Seen 01/18/23 Time Seen by a Provider: 11:00 Attending Physician Kalpana Harris Aprn PCP Admitting Physician: Olivia Shah DO Attending Physician: Olivia Shah DO Referring Physician Date of Admission Jan 18, 2023 at 04:47 Home Medications & Allergies Home Medications Reviewed patient Home Medication Reconciliation performed by pharmacy medication reconciliations agronomy technician and/or nursing. Patients Allergies have been reviewed. Allergies Allergies Coded Allergies flecainide (Verified Allergy, Intermediate, Shortness of Breath, 01/18/23) Sulfa (Sulfonamide Antibiotics) (Verified Allergy, Unknown, 01/16/23) Past Vmvclsl-Sukmyk-Icjlkl Hx Patient Social History Marrital Status: single Employed/Student: retired Tobacco Use?: No Smoking Status: Former Smoker Smokeless Tobacco Frequency: Never a User Use of E-Cig and/or Vaping dev: No Substance use?: No Alcohol Use?: Yes Alcohol type: Beer, Hard Liquor Alcohol Frequency: Once in a while Pt feels they are or have been: No Current Status Advance Directives: No Communicates: Verbally Primary Language: Sammarinese Preferred Spoken Language: Sammarinese Is interpretation needed?: No Past Medical History Surgeries: Appendectomy, Tubal Ligation Asthma, COPD Atrial Fibrillation, High Cholesterol, Hypertension Review of Systems Constitutional: see HPI, malaise, weakness Respiratory: dyspnea on exertion, short of breath Physical Exam Physical Exam Vital Signs Vital Signs - First Documented 01/18/23 01/18/23 01/18/23 03:09 04:40 06:24 Temp 36.0 Pulse 68 Resp 28 B/P (MAP) 119/87 (98) Pulse Ox 98 O2 Delivery Nasal Cannula O2 Flow Rate 4.00 FiO2 50 Capillary Refill : Less Than 3 Seconds Height, Weight, BMI Height: '" Weight: lbs. oz. kg; 31.82 BMI Method: General Appearance: No Apparent Distress, Chronically ill Eyes: Right Eye Normal Inspection, Right Eye PERRL HEENT: PERRL/EOMI, Normal ENT Inspection, Pharynx Normal, Moist Mucous Membranes Neck: Full Range of Motion, Normal Inspection, Non Tender Respiratory: Chest Non Tender, Lungs Clear, No Accessory Muscle Use, No Respiratory Distress, Decreased Breath Sounds Cardiovascular: Regular Rate, Rhythm, No Edema, No Gallop, No JVD, No Murmur, Normal Peripheral Pulses Gastrointestinal: Normal Bowel Sounds, No Organomegaly, No Pulsatile Mass, Non Tender, Soft Back: Normal Inspection, No CVA Tenderness, No Vertebral Tenderness Extremity: Normal Capillary Refill, Normal Inspection, Normal Range of Motion, Non Tender, No Calf Tenderness, No Pedal Edema Neurologic/Psychiatric: Alert, Oriented x3, No Motor/Sensory Deficits, Normal Mood/Affect Skin: Normal Color, Warm/Dry Lymphatic: No Adenopathy Results Results/Procedures Labs Laboratory Tests 01/18/23 05:50 Patient resulted labs reviewed. Assessment/Plan Admission Diagnosis Assessment: Acute on chronic respiratory failure requiring BiPAP Severe end stage COPD Volume overload Recent cardiac procedure Atrial fibrillation Hypertension Anxiety Plan: Supportive care Remain in ICU Close monitoring of oxygen level BiPAP as needed Admission Status: Inpatient Order (span 2 midnights) Reason for Inpatient Admission: resp failure OLIVIA SHAH DO Jan 18, 2023 11:41
--- NOTE | 2023-01-18 13:29 | Consultation-Cardiology ---
HPI-Cardiology Cardiology Consultation Date of Consultation 01/18/23 Date of Admission Time Seen by Provider: 13:22 Indication: Shortness of breath HPI 67-year-old lady with history of atrial fibrillation, COPD, oxygen dependent. Morbid obesity. Patient was hospitalized on January 16, 2023 underwent cardiac catheterization which showed slow flow in the left coronary system with no obstructive disease, underwent DORETHA then electrical cardioversion and maintained sinus rhythm She was started on flecainide and discharged on January 17, 2023. Patient returned to the emergency room last night on January 17, 2023 with acute respiratory insufficiency, shortness of breath and wheezing, reporting that she has underlying reactive airway disease and she does tend to become severely short of breath with any new medication. On my evaluation she was still having wheezing and shortness of breath. Denied any chest pain. Home Medications & Allergies Allergies: Coded Allergies: Sulfa (Sulfonamide Antibiotics) (Verified Allergy, Unknown, 01/16/23) Home Medication List Reviewed: Yes NDX-Wrkiom-Leamxs Hx Patient Social History Marital Status: Employed/Student: retired Smoking Status: Former Smoker Alcohol Use?: Yes Past Medical History Discussed below Family Medical History Significant Family History: No Pertinent Family Hx Review of Systems-General Review of Systems Constitutional: see HPI, malaise, weakness EENTM: no symptoms reported Respiratory: see HPI, dyspnea on exertion, short of breath, wheezing Cardiovascular: see HPI; No chest pain; edema; No Hx of Intervention, No palpitations, No syncope, No vascular heart diseas, No other Gastrointestinal: no symptoms reported, see HPI Genitourinary: no symptoms reported, see HPI Musculoskeletal: no symptoms reported, see HPI Skin: no symptoms reported, see HPI Psychiatric/Neurological: No Symptoms Reported, See HPI All Other Systems Reviewed Negative Unless Noted: Yes Reviewed Test Results Reviewed Test Results Lab Laboratory Tests Test 01/18/23 03:43 01/18/23 05:50 01/18/23 10:52 Range/Units SARS-CoV-2 RNA (RT-PCR) Not Detected Not Detecte White Blood Count 9.9 4.3-11.0 10^3/uL Red Blood Count 4.36 3.80-5.11 10^6/uL Hemoglobin 13.8 11.5-16.0 g/dL Hematocrit 42 35-52 % Mean Corpuscular Volume 97 80-99 fL Mean Corpuscular Hemoglobin 32 25-34 pg Mean Corpuscular Hemoglobin Concent 33 32-36 g/dL Red Cell Distribution Width 12.5 10.0-14.5 % Platelet Count 207 130-400 10^3/uL Mean Platelet Volume 11.4 9.0-12.2 fL Immature Granulocyte % (Auto) 1 % Neutrophils (%) (Auto) 94 H 42-75 % Lymphocytes (%) (Auto) 5 L 12-44 % Monocytes (%) (Auto) 1 0-12 % Eosinophils (%) (Auto) 0 0-10 % Basophils (%) (Auto) 0 0-10 % Neutrophils # (Auto) 9.3 H 1.8-7.8 10^3/uL Lymphocytes # (Auto) 0.5 L 1.0-4.0 10^3/uL Monocytes # (Auto) 0.1 0.0-1.0 10^3/uL Eosinophils # (Auto) 0.0 0.0-0.3 10^3/uL Basophils # (Auto) 0.0 0.0-0.1 10^3/uL Immature Granulocyte # (Auto) 0.1 0.0-0.1 10^3/uL Neutrophils % (Manual) 95 % Lymphocytes % (Manual) 4 % Monocytes % (Manual) 1 % Blood Morphology Comment NORMAL Sodium Level 137 135-145 MMOL/L Potassium Level 3.7 3.6-5.0 MMOL/L Chloride Level 101 98-107 MMOL/L Carbon Dioxide Level 24 21-32 MMOL/L Anion Gap 12 5-14 MMOL/L Blood Urea Nitrogen 14 7-18 MG/DL Creatinine 0.77 0.60-1.30 MG/DL Estimat Glomerular Filtration Rate 85 BUN/Creatinine Ratio 18 Glucose Level 215 H 70-105 MG/DL Calcium Level 9.8 8.5-10.1 MG/DL Magnesium Level 1.7 1.6-2.4 MG/DL Troponin I < 0.028 <0.028 NG/ML Glucometer 361 H 70-110 MG/DL Physical Exam Physical Exam Vital Signs Vital Signs - First Documented 01/18/23 01/18/23 01/18/23 03:09 04:40 06:24 Temp 36.0 Pulse 68 Resp 28 B/P (MAP) 119/87 (98) Pulse Ox 98 O2 Delivery Nasal Cannula O2 Flow Rate 4.00 FiO2 50 Capillary Refill : Less Than 3 Seconds Height, Weight, BMI Height: '" Weight: lbs. oz. kg; 31.82 BMI Method: General Appearance: No Apparent Distress, WD/WN Eyes: Bilateral Eye Normal Inspection, Bilateral Eye PERRL, Bilateral Eye EOMI HEENT: PERRL/EOMI, TMs Normal, Normal ENT Inspection, Pharynx Normal, Moist Mucous Membranes Neck: Full Range of Motion, Normal Inspection, Non Tender, Supple, Carotid Bruit Respiratory: Chest Non Tender, No Accessory Muscle Use, No Respiratory Distress, Crackles, Decreased Breath Sounds, Wheezing Cardiovascular: Regular Rate, Rhythm, No Edema, No Gallop, No JVD, No Murmur, Normal Peripheral Pulses Gastrointestinal: Normal Bowel Sounds, No Organomegaly, No Pulsatile Mass, Non Tender, Soft Back: Normal Inspection, No CVA Tenderness, No Vertebral Tenderness Extremity: Normal Capillary Refill, Normal Inspection, Normal Range of Motion, Non Tender, No Calf Tenderness, No Pedal Edema Neurologic/Psychiatric: Alert, Oriented x3, No Motor/Sensory Deficits, Normal Mood/Affect Skin: Normal Color, Warm/Dry Lymphatic: No Adenopathy A/P-Cardiology Admission Diagnosis Acute respiratory insufficiency Acute exacerbation of COPD Paroxysmal atrial fibrillation Hypertension Assessment/Plan Acute respiratory insufficiency, acute exacerbation of COPD with reactive airway disease Still having some wheezing but overall feeling better Maintained on bronchodilators. Patient is oxygen dependent at home. Continue to monitor Coronary artery disease, abnormal stress test with cardiac catheterization carried out on January 16, 2023 showing slow flow in the LAD and left system, nonobstructive disease Medical therapy is recommended Paroxysmal atrial fibrillation Patient had a Zio patch initially showing persistent atrial fibrillation Underwent DORETHA with electrical cardioversion on January 17, 2023. Patient was started on flecainide but she was unable to tolerated and reported wheezing and shortness of breath. Probably allergy to flecainide I will try propafenone 150 every 8 hours and evaluate tolerance and response Hypertension, well controlled. I will discontinue metoprolol to avoid reactive airway disease and use only calcium channel blockers and evaluate tolerance and response Hyperlipidemia, maintained on atorvastatin which will be restarted Hypothyroidism, managed by primary care team Diabetes mellitus. Followed and managed by primary care team Obesity, BMI 31, we discussed weight loss and exercise CHARU CROW MD Jan 18, 2023 13:29
[2023-01-18] MEDS ORDERED: diazePAM 5 MG TABLET PO PRN (13:30)
--- NOTE | 2023-01-18 14:22 | Diagnostic Imaging Report ---
PROCEDURE: CT chest without contrast. TECHNIQUE: Multiple contiguous axial images were obtained through the chest without the use of intravenous contrast. Auto Exposure Controls were utilized during the CT exam to meet ALARA standards for radiation dose reduction. INDICATION: Abnormal chest x-ray, hypoxia, acute exacerbation. COMPARISON: 12/21/2022 and radiographs dated 01/18/2023. FINDINGS: Multiple mediastinal lymph nodes are present which are at the upper limits of normal in size measuring just under 1 cm in short dimension. Scattered vascular calcifications, including within the coronary arteries without aneurysmal dilatation of the thoracic aorta. The heart is mildly enlarged. No significant pericardial effusion. Small bilateral pleural effusions are present, increased since the prior CT examination. This is associated with adjacent atelectasis, particularly within the bilateral lower lobes. Additional ground-glass, reticular, and tree-in-bud opacities are present within the right lower lobe, which are new from the prior examination. The trachea is patent. Cholelithiasis. The liver appears enlarged, particularly the left hepatic lobe. This is only partially visualized. Mild scattered osseous degenerative changes without acute osseous abnormality. IMPRESSION: 1. Small bibasilar pleural effusions with adjacent atelectasis. This has worsened since the prior CT from 12/21/2022. 2. New right lower lobe infiltrate, which is mild. 3. Mild cardiomegaly. 4. Cholelithiasis. 5. Hepatomegaly, particularly the left hepatic lobe. Dictated by: Dictated on workstation # [id number]
[2023-01-18] MEDS: PROPAFENONE 300 MG PO SCH ×2 (14:27→21:26)
[2023-01-18] MEDS ORDERED: RIVAROXABAN 20 MG TABLET PO SCH ×2 (17:00)
[2023-01-18] MEDS ORDERED: meTOprolol TARTRATE (IR) 50 MG TABLET PO SCH (21:00)
[2023-01-19] MEDS: RT-Ipratropium/Albuterol NEB 3 ML VIAL INH SCH ×2 (03:10→09:17)
[2023-01-19 03:59] LABS: BASOPHILS % (AUTO) 0 % (0-10); EOSINOPHILS % (AUTO) 0 % (0-10); HEMATOCRIT 39 % (35-52); HEMOGLOBIN 12.7 g/dL (11.5-16.0); LYMPHOCYTES # (AUTO) 0.8 10^3/uL (1.0-4.0); LYMPHOCYTES % (AUTO) 6 % (12-44); MEAN CORPUSCULAR HEMOGLOBIN 32 pg (25-34); MEAN CORPUSCULAR HGB CONC 33 g/dL (32-36); MEAN CORPUSCULAR VOLUME 97 fL (80-99); MEAN PLATELET VOLUME 11.5 fL (9.0-12.2); MONOCYTES # (AUTO) 0.4 10^3/uL (0.0-1.0); MONOCYTES % (AUTO) 3 % (0-12); NEUTROPHILS # (AUTO) 13.2 10^3/uL (1.8-7.8); NEUTROPHILS % (AUTO) 91 % (42-75); PLATELET COUNT 206 10^3/uL (130-400); WHITE BLOOD COUNT 14.5 10^3/uL (4.3-11.0)
[2023-01-19 04:46] LABS: BILIRUBIN,TOTAL 0.4 MG/DL (0.1-1.0); CALCIUM 9.7 MG/DL (8.5-10.1); CREATININE SERUM 0.91 MG/DL (0.60-1.30); MAGNESIUM 1.8 MG/DL (1.6-2.4); PHOSPHORUS 3.7 MG/DL (2.3-4.7); POTASSIUM 3.9 MMOL/L (3.6-5.0); TOTAL PROTEIN 7.1 GM/DL (6.4-8.2)
[2023-01-19] MEDS: MAGNESIUM 1 GM/100 ML IVPB 100 ML IV SCH ×3 (05:29→06:46)
[2023-01-19] MEDS: POTASSIUM CHLORIDE 20 MEQ TABLET PO SCH (05:30)
[2023-01-19] MEDS: POTASSIUM CL 10MEQ/50ML IVPB 50 ML IV SCH (05:30)
[2023-01-19] MEDS: inSUlin ASPART 1 UNIT/0.01 ML (PER UNIT) SC SCH (05:34)
[2023-01-19] MEDS: CATHETER FLUSH 10 ML SYR IVP SCH (05:49)
[2023-01-19] MEDS: PROPAFENONE 300 MG PO SCH (05:50)
[2023-01-19] MEDS ORDERED: POTASSIUM CHLORIDE 20 MEQ TABLET PO ONE (06:00)
[2023-01-19] MEDS ORDERED: LEVOTHYROXINE 50 MCG TABLET PO SCH (06:30)
--- NOTE | 2023-01-19 07:40 | Cardiology Progress Note ---
Subjective Date Seen by Provider: Jan 19, 2023 Time Seen by Provider: 07:40 Subjective/Events-last exam Patient is laying down in bed, feeling better. Breathing better. Having some cough Review of Systems General: No Chills, No Night Sweats, No Fatigue, No Malaise, No Appetite, No Other HEENT: No Head Aches, No Visual Changes, No Eye Pain, No Ear Pain, No Dysphasi a, No Sinus Congestion, No Post Nasal Drip, No Sore Throat, No Other Pulmonary: Dyspnea, Cough; No Pleuritic Chest Pain, No Other Cardiovascular: No: Chest Pain, Palpitations, Orthopnea, Paroxysmal Noc. Dyspnea, Edema, Lt Headedness, Other Objective-Cardiology Exam Last Set of Vital Signs Vital Signs 01/18/23 01/19/23 01/19/23 06:24 03:00 06:00 Temp 36.4 Pulse 80 Resp 20 B/P (MAP) 117/75 (89) Pulse Ox 97 O2 Delivery Nasal Cannula O2 Flow Rate 2.00 FiO2 50 I&O Intake and Output 01/19/23 00:00 Intake Total 600 ml Output Total 1050 ml Balance -450 ml Intake Oral 500 ml IV Total 100 ml Output Urine Total 1050 ml Daily Weight Change No General: Alert, Oriented X3, Cooperative HEENT: Atraumatic, PERRLA Neck: Supple, No JVD, No Thyromegaly Lungs: Clear to Auscultation, Normal Air Movement Heart: Regular Rate, Normal S1, Normal S2, No Murmurs Abdomen: Normal Bowel Sounds, Soft, No Tenderness, No Hepatosplenomegaly, No Masses Extremities: No Clubbing, No Cyanosis, No Edema, Normal Pulses, No Tenderness/Swelling Skin: No Rashes, No Breakdown, No Significant Lesion Neuro: Normal Gait, Normal Speech, Strength at 5/5 X4 Ext, Normal Tone, Sensation Intact Psych/Mental Status: Mental Status NL, Mood NL Results Lab Laboratory Tests 01/19/23 03:41 A/P-Cardiology Admission Diagnosis Acute respiratory insufficiency Acute exacerbation of COPD Paroxysmal atrial fibrillation Hypertension Assessment/Plan Acute respiratory insufficiency, acute exacerbation of COPD with reactive airway disease Maintained on bronchodilators. Patient is oxygen dependent at home. Responding well to diuretics and bronchodilators Coronary artery disease, abnormal stress test with cardiac catheterization carried out on January 16, 2023 showing slow flow in the LAD and left system, nonobstructive disease Medical therapy is recommended Paroxysmal atrial fibrillation Patient had a Zio patch initially showing persistent atrial fibrillation Underwent DORETHA with electrical cardioversion on January 17, 2023. Patient was started on flecainide but she was unable to tolerated and reported wheezing and shortness of breath. Probably allergy to flecainide I will try propafenone 150 every 8 hours and evaluate tolerance and response Hypertension, well controlled. I will discontinue metoprolol to avoid reactive airway disease and use only calcium channel blockers and evaluate tolerance and response Hyperlipidemia, maintained on atorvastatin which will be restarted Hypothyroidism, managed by primary care team Diabetes mellitus. Followed and managed by primary care team Obesity, BMI 31, we discussed weight loss and exercise CHARU CROW MD Jan 19, 2023 07:40
[2023-01-19] MEDS ORDERED: UMECLIDINIUM/VILANTEROL 62.5/25 MCG 7 DOSES (ANORO) IH SCH (08:00)
[2023-01-19] MEDS ORDERED: NON-FORMULARY MEDICATION 1 EA EA (Lisinopril/Hydrochlorothiazide (Lisinopril-Hctz 20-25 mg PO SCH (09:00)
[2023-01-19] MEDS ORDERED: amLODIPine 10 MG TABLET PO SCH (09:00)
[2023-01-19] MEDS ORDERED: NON-FORMULARY MEDICATION 1 EA EA (Tiotropium Br/Olodaterol HCl (Stiolto Respimat Inhal Spr IH SCH (09:00)
[2023-01-19] MEDS: FUROSEMIDE INJECTION 40 MG/4 ML VIAL IV SCH (09:12)
[2023-01-19] MEDS: ASPIRIN 81 MG CHEWABLE TABLET PO SCH (09:13)
[2023-01-19] MEDS: SENNOSIDES 8.6 MG (SENOKOT) TAB PO SCH (09:13)
[2023-01-19] MEDS: DOCUSATE SODIUM 100 MG CAPSULE PO SCH (09:13)
--- NOTE | 2023-01-19 09:21 | Diagnostic Imaging Report ---
Indication: Hypoxia Frontal chest obtained at 4:15 a.m. compared with previous day Heart is mildly enlarged. There is improvement in central vascular congestion compared to the prior study. There is no focal infiltrate or pneumothorax. Left lung base is not well seen but this may be technical. IMPRESSION: Cardiomegaly. Left lung base not well seen and this may be technical. There is improved central vascular congestion compared to yesterday however. Dictated by: Dictated on workstation # [id number]
[2023-01-19] MEDS ORDERED: PROP300T PO (10:39)
[2023-01-19] MEDS ORDERED: IPRA3AMP31 INH (10:39)
--- NOTE | 2023-01-19 10:39 | Discharge Summary ---
Discharge Summary Hospital Course Was the Problem List Reviewed?: Yes Problems/Dx: (1) COPD exacerbation Status: Acute (2) Congestive heart failure Status: Acute Qualifiers: Qualified Codes: I50.9 - Heart failure, unspecified Hospital Course Date of Admission: Jan 18, 2023 at 04:47 Admission Diagnosis : Family Physician/Provider: Kalpana Harris Aprn Date of Discharge: 01/19/23 Discharge Diagnosis: [ ] Hospital Course: Hospital course: 67-year-old female with severe end stage COPD and a history of AFIB, HTN, and DM presented to ED from [facility] with increased SOB. Patient was recently admitted on 01/16/23 for an abnormal stress test showing Afib with RVR. She received successful cardioconversion for her Afib with RVR and then underwent cardiac catheterization that showed 40% mid-right coronary artery stenosis & slow flow in left coronary system due to small vessel disease. She was started on flecainide and was discharged on 01/17/23. On the next day, she presented to the ER with SOB that required BiPAP and possible intubation. Patient was admitted to ICU on 01/18/23 for vykpe-um-vrbyolw respiratory failure and acute COPD exacerbation. During her stay, patient was maintained on bronchodilators and received oxygen with BiPAP as needed. She was assessed by cardiology and was discontinued on flecainide, believing it caused an allergic reaction. She was started on propafenone 150 Q8HR and was able to tolerate it. Patient dramatically improved the next day with no complications and was able to breath via nasal cannula without any BiPAP overnight. Patient was discharged on 01/19/23. Labs and Pending Lab Test: Laboratory Tests 01/18/23 10:52: Glucometer 361H 01/18/23 16:02: Glucometer 342H 01/18/23 20:37: Glucometer 348H 01/19/23 03:41: White Blood Count 14.5H, Red Blood Count 3.99, Hemoglobin 12.7, Hematocrit 39, Mean Corpuscular Volume 97, Mean Corpuscular Hemoglobin 32, Mean Corpuscular Hemoglobin Concent 33, Red Cell Distribution Width 12.9, Platelet Count 206, Mean Platelet Volume 11.5, Immature Granulocyte % (Auto) 1, Neutrophils (%) (Auto) 91H, Lymphocytes (%) (Auto) 6L, Monocytes (%) (Auto) 3, Eosinophils (%) (Auto) 0, Basophils (%) (Auto) 0, Neutrophils # (Auto) 13.2H, Lymphocytes # (Auto) 0.8L, Monocytes # (Auto) 0.4, Eosinophils # (Auto) 0.0, Basophils # (Auto) 0.0, Immature Granulocyte # (Auto) 0.1, Sodium Level 133L, Potassium Level 3.9, Chloride Level 94L, Carbon Dioxide Level 27, Anion Gap 12, Blood Urea Nitrogen 22H, Creatinine 0.91, Estimat Glomerular Filtration Rate 70, BUN/Creatinine Ratio 24, Glucose Level 176H, Calcium Level 9.7, Corrected Calcium 9.7, Phosphorus Level 3.7, Magnesium Level 1.8, Total Bilirubin 0.4, Aspartate Amino Transf (AST/SGOT) 22, Alanine Aminotransferase (ALT/SGPT) 24, Alkaline Phosphatase 81, Total Protein 7.1, Albumin 4.0 01/19/23 10:22: Glucometer 255H Microbiology 01/18/23 MRSA Screen - Final, Complete MRSA not isolated Home Meds Active Iprat-Albut 0.5-3(2.5) mg/3 ml (Ipratropium/Albuterol Sulfate) 0.5 Mg-3 Mg (2.5 Mg Base)/3 Ml Ampul.neb 3 Ml INH RTQ6HR Propafenone HCl 300 Mg Tablet 150 Mg PO TID Reported Amlodipine Besylate 10 Mg Tablet 10 Mg PO DAILY Lisinopril-Hctz 20-25 mg Tab (Lisinopril/Hydrochlorothiazide) 20 Mg-25 Mg Tablet 1 Ea PO DAILY Metformin HCl 500 Mg Tablet 500 Mg PO 1800 Flecainide Acetate 100 Mg Tablet 100 Mg PO BID Proventil Hfa (Albuterol Sulfate) 90 Mcg Hfa.aer.ad 2 Puff INH Q6H PRN Stiolto Respimat Inhal [place] (Tiotropium Br/Olodaterol HCl) 2.5 Mcg-2.5 Mcg/Actuation Mist.inhal 2 Puff IH DAILY Metoprolol Tartrate 50 Mg Tablet 50 Mg PO BID Atorvastatin Calcium 20 Mg Tablet 20 Mg PO HS Diazepam 5 Mg Tablet 5 Mg PO DAILY PRN Levothyroxine Sodium 50 Mcg Tablet 50 Mcg PO DAILY Xarelto (Rivaroxaban) 20 Mg Tablet 20 Mg PO 1800 Assessment/Pt Instructions PCP in 1 week Discharge Planning: <30 minutes discharge planning Discharge Instructions Discharge Diet: No Restrictions Discharge Physical Examination Vital Signs Vital Signs Date Time Temp Pulse Resp B/P (MAP) Pulse Ox O2 Delivery O2 Flow Rate FiO2 01/19/23 09:17 93 Nasal Cannula 1.00 01/19/23 07:00 77 01/19/23 06:00 20 117/75 (89) 01/19/23 03:00 36.4 01/18/23 06:24 50 General Appearance: No Apparent Distress, WD/WN Respiratory: Lungs Clear, Normal Breath Sounds, Decreased Breath Sounds Allergies: Coded Allergies: flecainide (Verified Allergy, Intermediate, Shortness of Breath, 01/18/23) Sulfa (Sulfonamide Antibiotics) (Verified Allergy, Unknown, 01/16/23) Discharge Summary Date of Admission Jan 18, 2023 at 04:47 Date of Discharge Discharge Date: Jan 19, 2023 Admission Diagnosis Assessment: Acute on chronic respiratory failure requiring BiPAP Severe end stage COPD Volume overload Recent cardiac procedure Atrial fibrillation Hypertension Anxiety Plan: Supportive care Remain in ICU Close monitoring of oxygen level BiPAP as needed JOSEE SOTO DO Jan 19, 2023 10:39
[2023-01-19 12:20] VITALS: BP 112/80
--- NOTE | 2023-01-19 13:40 | Progress Note ---
DANIELA ASTUDILLO 01/19/23 1340: Progress Note Hospital course: 67-year-old female with severe end stage COPD and a history of AFIB, HTN, and DM presented to ED from [facility] with increased SOB. Patient was recently admitted on 01/16/23 for an abnormal stress test showing Afib with RVR. She received successful cardioconversion for her Afib with RVR and then underwent cardiac catheterization that showed 40% mid-right coronary artery stenosis & slow flow in left coronary system due to small vessel disease. She was started on flecainide and was discharged on 01/17/23. On the next day, she presented to the ER with SOB that required BiPAP and possible intubation. Patient was admitted to ICU on 01/18/23 for bxdea-uk-rnxlddy respiratory failure and acute COPD exacerbation. During her stay, patient was maintained on bronchodilators and received oxygen with BiPAP as needed. She was assessed by cardiology and was discontinued on flecainide, believing it caused an allergic reaction. She was started on propafenone 150 Q8HR and was able to tolerate it. Patient dramatically improved the next day with no complications and was able to breath via nasal cannula without any BiPAP overnight. Patient was discharged on 01/19/23. OLIVIA SOTO DO 01/19/232: Supervisory-Addendum Brief Verification & Attestation Participated in pt care: history, MDM, physical Personally performed: exam, history, MDM, supervision of care Care discussed with: Medical Student Procedures: n/a Results interpretation: Verified all documentation Verification and Attestation of Medical Student E/M Service A medical student performed and documented this service in my presence. I reviewed and verified all information documented by the medical student and made modifications to such information, when appropriate. I personally performed the physical exam and medical decision making. Olivia Soto Jan 19, 2023,21:12 DANIELA ASTUDILLO Jan 19, 2023 13:40 OLIVIA SOTO DO Jan 19, 2023 21:12
== END 2023-01-19 12:10 | disposition home or self-care (01) | DRG 189 ==
LOC: EDUNIT# 03:04 → ER 03:06 → OBSVTOIN 04:47 → ICU 04:47
PROVIDERS: ADMIT Internal Medicine; ATTEND Internal Medicine
PROC: 5A09357 Assistance with Respiratory Ventilation, Less than 24 Consecutive Hours, Continuous Positive Airway Pressure (ICD-10-PCS; principal; 2023-01-18)
DX: J96.21 Acute and chronic respiratory failure with hypoxia (principal); J44.1 Chronic obstructive pulmonary disease with (acute) exacerbation; Z79.84 Long term (current) use of oral hypoglycemic drugs; Z79.899 Other long term (current) drug therapy; Z87.891 Personal history of nicotine dependence; E78.00 Pure hypercholesterolemia, unspecified; I50.9 Heart failure, unspecified; E87.70 Fluid overload, unspecified; I11.0 Hypertensive heart disease with heart failure; F41.9 Anxiety disorder, unspecified; I25.10 Atherosclerotic heart disease of native coronary artery without angina pectoris; I48.0 Paroxysmal atrial fibrillation; E66.9 Obesity, unspecified; Z68.31 Body mass index [BMI] 31.0-31.9, adult; E11.9 Type 2 diabetes mellitus without complications; Z20.822 Contact with and (suspected) exposure to COVID-19
CPT/HCPCS: 36415; 51702; 71045; 71250; 80048; 80053; 82947; 83735; 84100; 84484; 85007; 85025; 85027; 87081; 87636; 93005; 94640; 94660

== ENCOUNTER 2023-04-24 09:06 | Day surgery (SDC) | payer MEDICARE ==
[~2023-04-24] VITALS: Ht 152.4 cm; Wt 71.3 kg
[~2023-04-24 09:06] MED LIST changes: +AMLO-251 PO; +IPRA3AMP31 INH; +LISI1TAB48 PO; +PROP300T PO
[2023-04-24] MEDS ORDERED: LIDOCAINE 1% INJ 20 ML VIAL ONE (09:09)
[2023-04-24] MEDS ORDERED: LIDOCAINE 1% INJ 20 ML VIAL INJ ONE (09:15)
[2023-04-24 09:25] VITALS: BP 154/80
--- NOTE | 2023-04-24 09:46 | Implantation of Loop Monitor ---
Implant of Loop Monitior IMPLANTATION OF LOOP MONITOR REPORT DATE OF PROCEDURE: 04/24/23 PREOP DIAGNOSIS: Paroxysmal atrial fibrillation POSTOP DIAGNOSIS: Paroxysmal atrial fibrillation PROCEDURE DETAILS: The patient is a 67 female with history of paroxysmal atrial fibrillation requiring long-term surveillance. Therefore implantable loop recorder was discussed and agreed with the patient. Informed consent was taken. All risks and complications were discussed at length. The patient was draped and prepped in the usual sterile fashion. Local anesthesia was lidocaine, which was given in the substernal area close to the 4th intercostal space. Loop monitor [employer] with serial number [id number] was implanted according to the protocol. Steri- Strips were placed at the end of the procedure. There were no complications and the patient tolerated the procedure well. ANESTHESIA: Local anesthesia with lidocaine. COMPLICATIONS: None CONTRAST/FLUOROSCOPY: None CONCLUSION: Successful implantation of loop monitor with no complication FINAL DIAGNOSIS: Paroxysmal atrial fibrillation Palpitation Coronary artery disease Hypertension CHARU CROW MD Apr 24, 2023 09:46
[2023-04-24 10:10] VITALS: BP 154/80
--- NOTE | 2023-05-03 12:59 | Cardiology History & Physical ---
HPI-Cardiology Cardiology Consultation Date of Consultation April 24, 2023 Date of Admission April 24, 2023 Time Seen by Provider: 08:00 Indication: Atrial fibrillation HPI 67-year-old lady with paroxysmal atrial fibrillation, maintained on propafenone, she was scheduled for loop monitor implantation Family Hx Significant Family History: No Pertinent Family Hx ROS-Cardiology Review of Systems General: No Chills, No Night Sweats, No Fatigue, No Malaise, No Appetite HEENT: No Head Aches, No Visual Changes, No Eye Pain, No Ear Pain, No Dysphasia, No Sinus Congestion, No Post Nasal Drip, No Sore Throat Pulmonary: No Dyspnea, No Cough, No Pleuritic Chest Pain Cardiovascular: No: Chest Pain, Palpitations, Orthopnea, Paroxysmal Noc. Dysp valentin, Edema, Lt Headedness Gastrointestinal: No: Nausea, Vomiting, Abdominal Pain, Diarrhea, Constipation, Melena, Hematochezia Genitourinary: No Dysuria, No Frequency, No Incontinence, No Hematuria, No Retention Musculoskeletal: No: neck pain, shoulder pain, arm pain, back pain, hand pain, leg pain, foot pain Neurological: No: Weakness, Numbness, Incoordination, Change in speech, Confusion, Seizures Home Medications & Allergies Allergies: Coded Allergies: flecainide (Verified Allergy, Intermediate, Shortness of Breath, 01/18/23) Sulfa (Sulfonamide Antibiotics) (Verified Allergy, Unknown, 01/16/23) Home Medication List Reviewed: Yes Exam-Cardiology Exam General Appearance: Alert, Oriented X3, Cooperative, No Acute Distress HEENT: Atraumatic, PERRLA Respiratory: Clear to Auscultation, Normal Air Movement Cardiovascular: Regular Rate, Normal S1, Normal S2, No Murmurs Abdominal: Normal Bowel Sounds, Soft, No Tenderness, No Hepatosplenomegaly, No Masses Extremities: No Clubbing, No Cyanosis, No Edema, Normal Pulses, No Tenderness/Swelling Skin: No Rashes, No Breakdown, No Significant Lesion Neuro: Normal Gait, Normal Speech, Strength at 5/5 X4 Ext, Normal Tone, Sen sation Intact Psych/Mental Status: Mental Status NL, Mood NL A/P-Cardiology Admission Diagnosis Atrial fibrillation Coronary artery disease Hypertension Hyperlipidemia Admission Status: Observation Assessment/Plan Coronary artery disease, Abnormal stress test on 01/11/23 showing baseline atrial fibrillation with rapid ventricular response persisted during test. Reversible ischemia involving the anterior wall and anterior lateral wall. Small left ventricular size with ejection fraction 82%. SSS 10, SDS 5, TID 1.15 Cardiac catheterization done on January 16, 2023 with slow flow in the coronary system due to small vessel disease, 40% mid right coronary artery stenosis nonobstructive disease with normal left ventricular end-diastolic pressure. Paroxysmal atrial fibrillation, Zio XT done showing persistent atrial fibrillation, with variable response ranging between 37-175, occasional PVC. Maintained on Lopressor 50mg BID, Xarelto. Status post DORETHA with electrical cardioversion on January 16, 2023. Allergic reaction to flecainide, she was unable to tolerate it. Maintained on propafenone 150 mg 3 times a day Patient is scheduled for atrial fibrillation monitoring with a loop monitor implantation Sinus node dysfunction, improved after stopping metoprolol. Hypertension, Maintained on amlodipine 10 mg daily, lisinopril HCT 20/25 mg daily. I will increase lisinopril to 40mg daily Hyperlipidemia, maintained on atorvastatin 20 mg daily. Lipid profile done on December 21, 2022 with total cholesterol 117, triglyceride 128, LDL 65, HDL 36. Continue to monitor Hypothyroidism, maintained on levothyroxine, managed by primary care physician Diabetes mellitus, maintained on metformin, managed by primary care physician COPD, oxygen dependent. Status post hospitalization in December 2022 for acute exacerbation and reactive airway disease BMI 30, discussed weight loss CHARU CROW MD May 03, 2023 12:59
== END 2023-04-24 10:10 | disposition home or self-care (01) ==
LOC: CATH 09:06
PROVIDERS: ATTEND Internal Medicine Cardiovascular Disease
DX: I48.0 Paroxysmal atrial fibrillation (principal); I25.10 Atherosclerotic heart disease of native coronary artery without angina pectoris; I10 Essential (primary) hypertension; E78.5 Hyperlipidemia, unspecified; J44.9 Chronic obstructive pulmonary disease, unspecified; R00.2 Palpitations; E03.9 Hypothyroidism, unspecified; Z99.81 Dependence on supplemental oxygen; Z79.01 Long term (current) use of anticoagulants; Z79.899 Other long term (current) drug therapy; Z79.890 Hormone replacement therapy
CPT/HCPCS: 33285